=== PATIENT | female | born 1970 | race Caucasian/White ===

== ENCOUNTER 2020-12-16 05:30 | Inpatient (IN) | payer BC ==
[2020-12-13 11:31] LABS: BASOPHILS % 0.3 % (0.0-1.0); EOSINOPHILS # (AUTO) 0.1 (0.0-0.4); EOSINOPHILS % 1.1 % (0.0-6.0); HEMATOCRIT 43.5 % (34.2-44.1); HEMOGLOBIN 14.4 g/dL (12.0-16.0); LYMPHOCYTES # (AUTO) 3.2 (1.0-3.2); LYMPHOCYTES % 33.9 % (18.0-39.1); MEAN CORPUSCULAR HEMOGLOBIN 28.3 pg (28-32); MEAN CORPUSCULAR HGB CONC 33.1 g/dL (31-35); MEAN CORPUSCULAR VOLUME 85.5 fL (81-99); MONOCYTES # (AUTO) 0.5 (0.2-0.8); MONOCYTES % 5.1 % (4.4-11.3); NEUTROPHILS # (AUTO) 5.6 (2.1-6.9); NEUTROPHILS % 59.1 % (38.7-80.0); PLATELET COUNT 253 x10e3/uL (140-360); RED BLOOD COUNT 5.09 x10e6/uL (3.6-5.1); RED CELL DISTRIBUTION WIDTH 12.8 % (11.7-14.4)
[~2020-12-16] VITALS: Ht 157.5 cm; Wt 102.1 kg
[~2020-12-16 05:30] MED LIST: CLARITIN10 MG PO; VITAMIN B122500 MCG PO; VITAMIN D PO
[2020-12-16] MEDS ORDERED: SODIUM CHLORIDE 0.9% 50ML 100 ML ONE (06:15)
[2020-12-16] MEDS ORDERED: BUPIVACAINE 0.25% 30ML SDV ONE (07:09)
[2020-12-16] MEDS ORDERED: FENTANYL CITRATE/PF 100MCG/2 ML INJ ONE (10:40)
[2020-12-16] MEDS ORDERED: ONDANSETRON HCL INJ 2MG/ML 2ML 2 MG/ML VIAL ONE ×2 (11:02→13:54)
[2020-12-16] MEDS ORDERED: METOCLOPRAMIDE HCL 10 MG/2ML VIAL ONE (11:02)
[2020-12-16 12:26] VITALS: BP 122/56
[2020-12-16 13:12] VITALS: BP 122/56
[2020-12-16] MEDS ORDERED: HYDROMORPHONE 1MG/1ML INJ IV PRN (13:30)
[2020-12-16] MEDS ORDERED: HYDROCODONE/APAP 7.5MG-325MG 1 EA TAB PO PRN (13:30)
[2020-12-16] MEDS: SODIUM CHLORIDE 0.9% 1000ML 1,000 ML IV SCH ×2 (13:48→21:27)
[2020-12-16] MEDS: FAMOTIDINE 20 MG/2 ML VIAL IV SCH ×2 (13:48→17:19)
[2020-12-16] MEDS ORDERED: SEVOFLURANE INHAL SOLN 250 ML PEN BTL ONE (13:54)
[2020-12-16] MEDS ORDERED: POVIDONE IODINE 0.05% 0.05 % ML PO ONE (13:54)
[2020-12-16] MEDS ORDERED: ROCURONIUM BROMIDE 10 MG/ML 5ML VIAL IV ONE (13:54)
[2020-12-16] MEDS ORDERED: NEOSTIGMINE 1 MG/ML 10ML VIAL ONE (13:54)
[2020-12-16] MEDS ORDERED: PROPOFOL IV EMULSION 10 MG/ML 20 ML VIAL ONE (13:54)
[2020-12-16] MEDS ORDERED: GLYCOPYRROLATE INJ 0.2 MG/ML VIAL ONE (13:54)
[2020-12-16] MEDS ORDERED: DEXAMETHASONE SOD PHOS INJ 4 MG/ML SDV ONE (13:54)
[2020-12-16] MEDS ORDERED: LIDOCAINE HCL 2% LOCAL INJ 5 ML SDV VIAL INJ ONE (13:54)
[2020-12-16] MEDS: Morphine 2mg Syringe 2 MG/ML SYR IV PRN ×2 (14:57→22:27)
[2020-12-16 15:57] VITALS: BP 137/79
[2020-12-16 16:57] VITALS: BP 137/79
[2020-12-16] MEDS: ONDANSETRON HCL INJ 2MG/ML 2ML 2 MG/ML VIAL IV PRN ×2 (17:20→22:27)
[2020-12-16 19:47] VITALS: BP 140/73
[2020-12-16 20:38] VITALS: BP 140/73
[2020-12-16] MEDS: ENOXAPARIN SOD INJ 40 MG/0.4 ML SYR SC SCH (21:27)
[2020-12-17] VITALS: BP 148/78
[2020-12-17 04:00] VITALS: BP 154/73
[2020-12-17] MEDS: SODIUM CHLORIDE 0.9% 1000ML 1,000 ML IV SCH (05:45)
[2020-12-17 06:21] LABS: BASOPHILS % 0.2 % (0.0-1.0); HEMATOCRIT 39.4 % (34.2-44.1); HEMOGLOBIN 13.1 g/dL (12.0-16.0); LYMPHOCYTES # (AUTO) 1.7 (1.0-3.2); LYMPHOCYTES % 15.7 % (18.0-39.1); MEAN CORPUSCULAR HEMOGLOBIN 28.5 pg (28-32); MEAN CORPUSCULAR HGB CONC 33.2 g/dL (31-35); MEAN CORPUSCULAR VOLUME 85.8 fL (81-99); MONOCYTES # (AUTO) 0.7 (0.2-0.8); NEUTROPHILS # (AUTO) 8.5 (2.1-6.9); NEUTROPHILS % 77.6 % (38.7-80.0); PLATELET COUNT 240 x10e3/uL (140-360); RED BLOOD COUNT 4.59 x10e6/uL (3.6-5.1)
[2020-12-17 06:58] LABS: ANION GAP 14.8 mmol/L (8-16); CALCIUM 8.5 mg/dL (8.4-10.2); CREATININE, SERUM 0.82 mg/dL (0.57-1.11); MAGNESIUM 2.5 MG/DL (1.3-2.1); PHOSPHORUS 2.1 MG/DL (2.3-4.7); POTASSIUM 3.8 mmol/L (3.5-5.1)
[2020-12-17 07:29] VITALS: BP 127/65
[2020-12-17] MEDS: FAMOTIDINE 20 MG/2 ML VIAL IV SCH (09:00)
[2020-12-17] MEDS: ENOXAPARIN SOD INJ 40 MG/0.4 ML SYR SC SCH (09:00)
[2020-12-17 10:05] VITALS: BP 127/65
[2020-12-17 11:26] VITALS: BP 138/73
[2020-12-17] MEDS: ONDANSETRON HCL INJ 2MG/ML 2ML 2 MG/ML VIAL IV PRN (12:01)
[2020-12-17] MEDS: Morphine 2mg Syringe 2 MG/ML SYR IV PRN (12:01)
== END 2020-12-17 18:17 | disposition home or self-care (01) | DRG 621 ==
LOC: OR 05:30 → PACU V 10:19 → MED/SURG2 11:25
PROVIDERS: ADMIT Internal Medicine; ATTEND Internal Medicine
PROC: 0DP64CZ Removal of Extraluminal Device from Stomach, Percutaneous Endoscopic Approach (ICD-10-PCS; 2020-12-16)
PROC: 0DB64Z3 Excision of Stomach, Percutaneous Endoscopic Approach, Vertical (ICD-10-PCS; principal; 2020-12-16 07:30)
DX: E66.01 Morbid (severe) obesity due to excess calories (principal); Z68.41 Body mass index [BMI] 40.0-44.9, adult; G47.33 Obstructive sleep apnea (adult) (pediatric); Z98.84 Bariatric surgery status; I10 Essential (primary) hypertension; R07.89 Other chest pain; Z20.822 Contact with and (suspected) exposure to COVID-19
CPT/HCPCS: 36415; 71045; 80048; 83735; 84100; 84484; 85025; 93005; J0690; J1100; J1170; J1650; J2001; J2270; J2405; J2710; J2765; J3010; J7030; U0002